=== PATIENT | male | born 1975 | race African-American/Black ===

== ENCOUNTER 2021-01-07 03:12 | Emergency (ER) | payer OTHER ==
[~2021-01-07] VITALS: Ht 190.5 cm; Wt 113.6 kg
[2021-01-07] MEDS: CloNIDine HCL 0.1 MG TABLET PO ONE (04:14)
[2021-01-07] MEDS: PERTUSS(ACELL),DIPH,TET VAC/PF 0.5 ML SYRINGE IM. ONE (04:15)
[2021-01-07] MEDS: IBUPROFEN 800 MG TABLET PO ONE (04:39)
[2021-01-07 05:25] LABS: BASOPHILS % (AUTO) 0.6 % (0.0-2.0); EOSINOPHILS % (AUTO) 5.5 % (1.0-6.0); HEMATOCRIT 26.3 % (41-53); HEMOGLOBIN 8.8 g/dL (13.5-17.5); LYMPHOCYTES # (AUTO) 0.8 K/uL (1.0-4.8); LYMPHOCYTES % (AUTO) 16.4 % (22.0-44.0); MEAN CORPUSCULAR HEMOGLOBIN 30.3 pg (26.0-34.0); MEAN CORPUSCULAR HGB CONC 33.6 G/dL (31.0-37.0); MEAN CORPUSCULAR VOLUME 90 fL (80-100); MONOCYTES # (AUTO) 0.7 K/uL (0.1-1.0); MONOCYTES % (AUTO) 13.9 % (2.0-9.0); NEUTROPHILS # (AUTO) 3.3 K/uL (1.8-7.7); NEUTROPHILS % (AUTO) 63.6 % (40.0-70.0); PLATELET COUNT (AUTO) 372 K/uL (150-450); RED BLOOD CELL COUNT(AUTO) 2.91 MIL/uL (4.50-5.90); RED CELL DISTRIBUTION WIDTH 15.3 % (11.5-14.5)
[2021-01-07 05:33] LABS: ANION GAP 9 mmol/L (8-16); CALCIUM, TOTAL 8.6 mg/dL (8.8-10.5); CARBON DIOXIDE 27 mmol/L (22-29); CHLORIDE 99 mmol/L (98-107); CREATININE 1.44 mg/dL (0.60-1.30); GLOMERULAR FILTR. RATE CALC > 60 mL/min (>60); GLUCOSE,RANDOM 132 mg/dL (70-110); POTASSIUM 3.3 mmol/L (3.5-5.1); SODIUM SERUM 135 mmol/L (136-145); UREA NITROGEN, BLOOD 23 mg/dL (7-18)
[2021-01-07 05:39] LABS: ALANINE AMINOTRANSFERASE 22 U/L (12-78); ALBUMIN 2.7 g/dL (3.4-5.0); ALKALINE PHOSPHATASE 71 U/L (46-116); ASPARTATE AMINOTRANSFERASE 29 U/L (15-37); BILIRUBIN,TOTAL 0.3 mg/dL (0.1-1.0)
[2021-01-07] MEDS: POTASSIUM CHLORIDE 20 MEQ ER TABLET PO ONE (06:06)
[2021-01-07 06:36] LABS: COVID AG,FIA SOURCE NASOPHARYNGEAL
[2021-01-07 07:00] VITALS: BP 145/86
== END 2021-01-07 09:02 | disposition home or self-care (01) ==
LOC: EMS 03:13
DX: S80.211A Abrasion, right knee, initial encounter (principal); D64.9 Anemia, unspecified; E87.6 Hypokalemia; F41.9 Anxiety disorder, unspecified; F20.9 Schizophrenia, unspecified; N50.811 Right testicular pain; N50.812 Left testicular pain; I10 Essential (primary) hypertension; F17.210 Nicotine dependence, cigarettes, uncomplicated; Z20.822 Contact with and (suspected) exposure to COVID-19; Z59.00 Homelessness unspecified; W19.XXXA Unspecified fall, initial encounter; Y93.89 Activity, other specified; Y92.89 Other specified places as the place of occurrence of the external cause; Y99.8 Other external cause status
CPT/HCPCS: 36415; 80053; 85025; 87426; 90471; 90715; 99285; G0480; 99284

== ENCOUNTER 2021-01-07 22:44 | Emergency (ER) | payer OTHER ==
[~2021-01-07] VITALS: Ht 190.5 cm; Wt 113.0 kg
[2021-01-07 23:56] VITALS: BP 123/77
[2021-01-08] MEDS: PERMETHRIN 5% 60 GM CREAM TP ONE (00:54)
== END 2021-01-08 01:25 | disposition home or self-care (01) ==
LOC: EMS 22:48
DX: B85.0 Pediculosis due to Pediculus humanus capitis (principal); I10 Essential (primary) hypertension; F20.9 Schizophrenia, unspecified; F17.210 Nicotine dependence, cigarettes, uncomplicated
CPT/HCPCS: 99283